=== PATIENT | female | born 1935 | race American Indian/Alaskan Native ===

== ENCOUNTER 2018-03-11 12:33 | Emergency (ER) | payer MEDICARE ==
[2018-03-11 12:35] VITALS: BMI 11.5
[2018-03-11 12:44] VITALS: O2SAT 99
--- NOTE | 2018-03-11 13:07 | ED PDOC ---
HPI: Psych/Substance Abuse Time Seen by Provider: 03/11/18 13:05 Chief Complaint (Nursing): Psychiatric Evaluation Chief Complaint (Provider): altered mentation History Per: Patient (82 y/o female h/o Dementia here for evaluation of altered mentation noted at retirement. Patient was noted to repeatedly express desire to leave retirement and appeared aggressive. As per EMS, patient was persistent with aggression until here in ED. Currently, patient states she is here b/c she fell today. Notes ongoing sob. Has h/o emphysema and is on 2 liters nasal cannula at retirement.) Past Medical History Reviewed: Historical Data, Nursing Documentation, Vital Signs Vital Signs: Last Vital Signs Temp 98.8 F 03/11/18 12:39 Pulse 87 03/11/18 12:39 Resp 18 03/11/18 12:39 BP 157/99 H 03/11/18 12:39 Pulse Ox 99 03/11/18 12:39 - Medical History PMH: GERD, HTN, Seizures - Family History Family History: States: No Known Family Hx - Immunization History Hx Tetanus Toxoid Vaccination: No Hx Influenza Vaccination: No Hx Pneumococcal Vaccination: No - Home Medications Home Medications: Ambulatory Orders Medication Instructions Recorded Acetaminophen [Tylenol 325mg tab] 650 mg PO Q4 PRN 03/11/18 Acetaminophen [Tylenol 325mg tab] 650 mg PO Q4 PRN 03/11/18 Albuterol Sulfate [Ventolin Hfa] 2 puff IH Q6 PRN 03/11/18 Ascorbic Acid [Vitamin C 500 mg 500 mg PO DAILY 03/11/18 Tab] Aspirin [Aspirin Chewable] 81 mg PO DAILY 03/11/18 Enoxaparin [Lovenox] 40 mg SC DAILY 03/11/18 Famotidine [Pepcid] 20 mg PO Q12 03/11/18 Fluticasone/Vilanterol [Breo 1 puff IH DAILY 03/11/18 Ellipta 200-25 Mcg INH] Lisinopril [Zestril] 20 mg PO DAILY 03/11/18 Mag Hydrox/Aluminum Hyd/Simeth 30 ml PO Q4 PRN 03/11/18 [Maalox Advanced Suspension] Magnesium Hydroxide [Milk Of 30 ml PO DAILY PRN 03/11/18 Magnesia] Montelukast [Singulair] 10 mg PO HS 03/11/18 Multivitamin [Multi-Vitamin Daily] 1 tab PO DAILY 03/11/18 Saccharomyces Boulardi [Florastor] 1 cap PO DAILY 03/11/18 oxyCODONE/Acetaminophen [Percocet 1 tab PO Q6 PRN 03/11/18 5/325 mg Tab] - Allergies Allergies/Adverse Reactions: Allergies Allergy/AdvReac Type Severity Reaction Status Date / Time morphine Allergy SWELLING Verified 03/11/18 12:45 Penicillins Allergy RASH Verified 03/11/18 12:38 Review of Systems ROS Statement: Except As Marked, All Systems Reviewed And Found Negative Physical Exam - Reviewed Nursing Documentation Reviewed: Yes Vital Signs Reviewed: Yes - Physical Exam Appears: Positive for: Well, Non-toxic, No Acute Distress Head Exam: Positive for: ATRAUMATIC, NORMAL INSPECTION, NORMOCEPHALIC Skin: Positive for: Normal Color, Warm, DRY Eye Exam: Positive for: EOMI, Normal appearance, PERRL ENT: Positive for: Normal ENT Inspection Neck: Positive for: Normal, Painless ROM Cardiovascular/Chest: Positive for: Regular Rate, Rhythm Respiratory: Positive for: CNT, Normal Breath Sounds Gastrointestinal/Abdominal: Positive for: Normal Exam, Soft Back: Positive for: Normal Inspection Extremity: Positive for: Normal ROM Neurologic/Psych: Positive for: Alert, Oriented - Laboratory Results Result Diagrams: 03/11/18 13:15 03/11/18 13:15 - ECG O2 Sat by Pulse Oximetry: 99 - Progress ED Course And Treament: CHEST CT :IMPRESSION: Patient's chest x-ray opacity corresponds to a heterogeneous mass with calcifications and pleural continuity and regional traction bronchiectasis. An inflammatory benign mass is 1 consideration. . Postinflammatory changes surrounding a malignant mass is not excluded. No suspect mediastinal hilar lymphadenopathy. Elsewhere are probably postinflammatory of pleural parenchymal and lesser interstitial inflammatory like changes as above. Consider tissue sampling for histology. At minimum in pulmonary consultation recommended EKG: NSR 82BPM; NO ECTOPY NO ACUTE CHANGES PATIENT PLEASANT/ALERT IN ED. STATES SHE HAS H/O TB AND HAS HAD ABNORMALITY ON CXR ON RIGHT SIDE SINCE. PATIENT DOES NOT WANT PULMONARY MASS EVALUATED FURTHER BY PULMONARY. STATES ' WHEN GOD WANTS TO TAKE HER' SHE WILL. SEEN BY CRISIS CLEARED TO RETURN TO INTERMEDIATE DIAGNOSIS ADJUSTMENT DISORDER D/W DR. KAY Disposition - Clinical Impression Clinical Impression: Adjustment disorder, Pulmonary mass - Patient ED Disposition Is Patient to be Admitted: No - Disposition Disposition: Routine/Home Disposition Time: 17:32 Condition: FAIR Instructions: Adjustment Disorder
[2018-03-11 13:26] LABS: BASO % 0.4 % (0.0-2.0); EOS % 0.7 % (0.0-4.0); HEMOGLOBIN 8.5 g/dL (12.0-16.0); LYMPH # 1.2 K/uL (1.0-4.3); LYMPH % 29.5 % (20.0-40.0); MEAN CELL VOLUME 93.9 fl (81.0-99.0); MONO # 0.5 K/uL (0.0-0.8); MONO % 13.4 % (0.0-10.0); NEUT # 2.2 K/uL (1.8-7.0); RBC 2.75 Mil/uL (3.80-5.20); RED CELL DISTRIBUTION WIDTH 13.6 % (11.5-14.5); WHITE BLOOD COUNT 3.9 K/uL (4.8-10.8)
[2018-03-11 13:31] LABS: BLOOD UREA NITROGEN 17 mg/dl (7-17); CALCIUM 9.2 mg/dL (8.4-10.2); GFR AFRICAN-AMERICAN > 60; GFR NON-AFRICAN AMERICAN > 60
--- NOTE | 2018-03-11 13:43 | RAD ---
HISTORY: sob COMPARISON: No prior. FINDINGS: LUNGS: 82 cm rounded masslike opacity, slightly hyperdense, projects over the right lower peritracheal region and is inferior to the anterior right 1st rib. Etiology indeterminate. CT chest imaging recommend Bilateral hyperaeration-COPD inferred. PLEURA: No significant pleural effusion identified, no pneumothorax apparent. CARDIOVASCULAR: Mild cardiomegaly. Atherosclerotic vascular calcifications present. . OSSEOUS STRUCTURES: Mild scoliosis. VISUALIZED UPPER ABDOMEN: Normal. OTHER FINDINGS: None. IMPRESSION: Lower right paratracheal masslike opacity- indeterminate . Malignancy needs to be considered. CT chest imaging recommended COPD Mild cardiomegaly Comments: Study marked for PA review.
--- NOTE | 2018-03-11 16:25 | CT ---
PROCEDURE: CT Chest without contrast HISTORY: CXR FINDING COMPARISON: Chest x-ray 03/11/2018 TECHNIQUE: Contiguous axial images were obtained through the chest without intravenous contrast enhancement. Sagittal and coronal reconstructions were performed. Radiation dose (DLP): 148 mGy-cm. This CT exam was performed using one or more of the following dose reduction techniques: Automated exposure control, adjustment of the mA and/or kV according to patient size, and/or use of iterative reconstruction technique. FINDINGS: LUNGS: Patient's right lower peritracheal chest x-ray hyperdense masslike opacity corresponds to a an oval 2.5 x 1.2 by 2.4 cm heterogeneous mass in the posterior segment of the right upper lobe this is contiguous with right posteromedial contiguous pleural thickening and regional bronchiectasis. On window wing, this hyperdense mass has punctate and coarse areas of calcification within it central and peripheral. The mass is seen projecting over the inferior right paratracheal location but is not right peritracheal per the CT study. At each lung base there are peripheral thin scattered inflammatory like changes present. There is more extensive band like posterior left pleural thickening/scarring contiguous with left pleural effusion and thickening as well. MEDIASTINUM: Unremarkable thoracic aorta. No aneurysm. Heart is mildly enlarged. No pericardial fusion. . Main pulmonary artery unremarkable. No vascular congestion. No lymphadenopathy.Atherosclerotic vascular calcifications present. . PLEURA: Left pleural effusion inferior with contiguous left pleural thickening. More extensive posteromedial right upper pleural thickening contiguous with the after mentioned masslike opacity- partly calcified in the posterior segment of the right upper lobe. . No pneumothorax. BONES: No fracture. No destructive lesion. UPPER ABDOMEN: Punctate left renal calcification OTHER FINDINGS: None. IMPRESSION: Patient's chest x-ray opacity corresponds to a heterogeneous mass with calcifications and pleural continuity and regional traction bronchiectasis. An inflammatory benign mass is 1 consideration. . Postinflammatory changes surrounding a malignant mass is not excluded. No suspect mediastinal hilar lymphadenopathy. Elsewhere are probably postinflammatory of pleural parenchymal and lesser interstitial inflammatory like changes as above. Consider tissue sampling for histology. At minimum in pulmonary consultation recommended
[2018-03-11 18:08] VITALS: BP 148/74; PULSE 88; RESP 16; TEMP 98
--- NOTE | 2018-03-12 09:35 | CARD ---
APPROVED REPORT EKG Measurement Heart [id number] <Conclusion> Normal sinus rhythm Minimal voltage criteria for LVH, may be normal variant Borderline ECG
== END 2018-03-11 18:11 | disposition home or self-care (01) ==
LOC: H.ER 12:33
DX: F43.20 Adjustment disorder, unspecified (principal); R91.8 Other nonspecific abnormal finding of lung field; F03.90 Unspecified dementia, unspecified severity, without behavioral disturbance, psychotic disturbance, mood disturbance, and anxiety; I10 Essential (primary) hypertension; J44.9 Chronic obstructive pulmonary disease, unspecified; Z79.82 Long term (current) use of aspirin; Z88.0 Allergy status to penicillin; Z00.8 Encounter for other general examination